=== PATIENT | female | born 1975 | race Caucasian/White ===

== ENCOUNTER 2017-08-04 22:15 | Emergency (ER) | payer SELFPAY ==
[2017-08-04] MEDS ORDERED: IPRATROPIUM/ALBUTEROL 3 ML DEYVIAL IH ONE (22:32)
[2017-08-04] MEDS ORDERED: ALBUTEROL INH PREPACK MDI TAKEHOME ONE (22:49)
[2017-08-04] MEDS ORDERED: AZITHROMYCIN 250 MG TAB PO ONE ×2 (22:50→23:12)
--- NOTE | 2017-08-04 22:53 | EDPHY ---
H & P Time Seen by Provider: 08/04/17 22:28 HPI/ROS: 42-year-old female presents complaining of cough for 4 days, primarily dry cough. She denies fevers or chills. Review of systems As per HPI General no fever no chills no weakness HEENT no eye pain no eye discharge. No eye redness, no sore throat Positive URI symptoms Respiratory positive cough, no shortness of breath Cardiac no chest pain, no peripheral edema GI no abdominal pain, no diarrhea, no constipation, no nausea, no vomiting no flank pain, no hematuria, no dysuria Musculoskeletal no myalgias, no joint pain Heme no easy bruising, no easy bleeding Endo no polyuria, no polydipsia Skin no rashes, no pruritus Neuro no syncope, no dizziness, no headaches Psych is no suicidal ideation, no homicidal ideation Past Medical/Surgical History: pneumonia Social History: quit smoking 5 years ago Smoking Status: Former smoker Physical Exam: 42-year-old female alert and oriented no acute distress, very harsh coarse cough Alert and oriented nontoxic appearance, no acute distress afebrile Atraumatic normocephalic Extraocular muscles intact, anicteric Nares mild yellowish discharge Oropharynx mild erythema no tonsillar swelling no exudate no uvular deviation, tolerating own secretions Neck supple no lymphadenopathy Lungs clear to auscultation bilaterally, scattered wheeze Heart regular rate and rhythm Abdomen normoactive bowel sounds soft nontender Extremities no cyanosis clubbing or edema Skin no rash Constitutional: Initial Vital Signs Temperature (C) 37.1 C 08/04/17 22:29 Heart Rate 101 H 08/04/17 22:29 Respiratory Rate 18 08/04/17 22:29 Blood Pressure 110/77 08/04/17 22:29 O2 Sat (%) 97 08/04/17 22:29 O2 Delivery Mode Room Air Allergies/Adverse Reactions: cephalexin monohydrate [From Keflex] Allergy (Verified 08/04/17 22:31) Rash Home Medications: Medication Instructions Recorded Azithromycin [Zithromax] 250 mg PO DAILY #6 tab 08/04/17 Benzonatate [Tessalon Pearles (RX)] 100 mg PO TID PRN #30 cap 08/04/17 methylPREDNISolone [Medrol Dose 1 each PO AD #1 ea 08/04/17 Nic] Medical Decision Making - Diagnostics Imaging Results: Imaging Impressions Chest X-Ray 08/04/17 22:31 Impression: Prominence of perihilar interstitial markings and peribronchial cuffing. Findings are nonspecific but can be seen with bronchitis, reactive airway disease, or viral process. ED Course/Re-evaluation: Patient seen and evaluated for cough x4 days with history of pneumonia in the past. Chest x-ray Negative for infiltrate Physical exam significant for harsh cough is scattered wheeze Patient given DuoNeb Given azithromycin 500 mg p.o. Prednisone 60 mg p.o. Impression Acute bronchitis Plan Discharge home Start Medrol Dosepak tomorrow Tessalon Perles Z-Nic Return as needed Differential Diagnosis: Differential diagnosis considered but not limited to: URI, bronchitis, pneumonia - Data Points Medications Given: Discontinued Medications Albuterol/Ipratropium (Duoneb) 3 ml IH EDNOW ONE Stop: 08/04/17 22:33 Last Admin: 08/04/17 22:47 Dose: 3 ml Departure - Departure Disposition: Home, Routine, Self-Care Clinical Impression: Acute bronchitis Condition: Good Instructions: Acute Bronchitis (ED) Referrals: Patient,NotPresent [Primary Care Provider] - As per Instructions Prescriptions: Azithromycin [Zithromax] 250 mg PO DAILY #6 tab Benzonatate [Tessalon Pearles (RX)] 100 mg PO TID PRN #30 cap PRN Reason: Cough, Severe methylPREDNISolone [Medrol Dose Nic] 1 each PO AD #1 ea
[2017-08-04] MEDS ORDERED: predniSONE 20 MG TAB PO ONE (22:56)
[2017-08-04 23:21] VITALS: BP 118/89
== END 2017-08-04 23:15 | disposition home or self-care (01) ==
LOC: CED 22:15
DX: J20.9 Acute bronchitis, unspecified (principal); Z87.891 Personal history of nicotine dependence
CPT/HCPCS: 71046-PO; J7512

== ENCOUNTER 2018-08-09 11:14 | Emergency (ER) | payer OTHER ==
[2018-08-09] MEDS ORDERED: NS 1,000 ML IV ONE (11:30)
[2018-08-09] MEDS ORDERED: ONDANSETRON 4 MG/2 ML VIAL IVP ONE (11:30)
--- NOTE | 2018-08-09 11:35 | EDPHY ---
H & P Time Seen by Provider: 08/09/18 11:26 HPI/ROS: CHIEF COMPLAINT: Vomiting, vaginal discharge HISTORY OF PRESENT ILLNESS: The patient is a 43-year-old female with a history of irritable bowel disease as well as endometriosis who comes to the emergency department complaining of nausea and vomiting for the last 2 days. She reports that she had to miss work yesterday and so they asked her to bring and note. She also reports that she has had vaginal discharge for about 10 years. She reports that she was diagnosed with bacterial vaginosis originally but never took medication because she could not afford it. She states that she has had continued mild discharge since that time. She also complains of frequent urination. No dysuria. No hematuria. No back pain. No fever. She denies risk of . She is sexually active with long-term single partner. She is not concerned for STD. No diarrhea. She states that she can hydrate well but if she tries to eat it makes her throw up. Severity: Moderate Modifying factors: Worsened by eating. REVIEW OF SYSTEMS: Constitutional: denies: chills, fever, recent illness, recent injury EENTM: denies: blurred vision, double vision, nose congestion Respiratory: denies: cough, shortness of breath Cardiac: denies: chest pain, irregular heart rate, lightheadedness, palpitations Gastrointestinal/Abdominal: See HPI Genitourinary: See HPI Musculoskeletal: denies: joint pain, muscle pain Skin: denies: lesions, rash, jaundice, bruising Neurological: denies: headache, numbness, paresthesia, tingling, dizziness, weakness Hematologic/Lymphatic: denies: blood clots, easy bleeding, easy bruising Immunologic/allergic: denies: HIV/AIDS, transplant 10 systems reviewed and negative except as noted EXAM: GENERAL: Well-appearing, well-nourished and in no acute distress. HEAD: Atraumatic, normocephalic. EYES: Pupils equal round and reactive to light, extraocular movements intact, sclera anicteric, conjunctiva are normal. ENT: TMs normal, nares patent, oropharynx clear without exudates. Moist mucous membranes. NECK: Normal range of motion, supple without lymphadenopathy or JVD. LUNGS: Breath sounds clear to auscultation bilaterally and equal. No wheezes rales or rhonchi. HEART: Regular rate and rhythm without murmurs, rubs or gallops. ABDOMEN: Soft, nontender, normoactive bowel sounds. No guarding, no rebound. No masses appreciated. Pelvic: No cervical motion tenderness. No unusual discharge. No erythema. No fullness. Samples taken and sent to the lab BACK: No CVA tenderness, no spinal tenderness, step-offs or deformities EXTREMITIES: Normal range of motion, no pitting or edema. No clubbing or cyanosis. NEUROLOGICAL: Cranial nerves II through XII grossly intact. Normal speech, normal gait. 5/5 strength, normal movement in all extremities, normal sensation , normal reflexes PSYCH: Normal mood, normal affect. SKIN: Warm, dry, normal turgor, no visible rashes or lesions. Source: Patient Exam Limitations: No limitations - Medical/Surgical History Hx Asthma: No Hx Chronic Respiratory Disease: No Hx Diabetes: No Hx Cardiac Disease: No Hx Renal Disease: No Hx Cirrhosis: No Hx Alcoholism: No Hx HIV/AIDS: No Hx Splenectomy or Spleen Trauma: No Other PMH: Hx PNA. - Family History Significant Family History: No pertinent family hx - Social History Smoking Status: Former smoker Alcohol Use: Sober Drug Use: None Constitutional: Initial Vital Signs Temperature (C) 36.8 C 08/09/18 12:18 Heart Rate 80 08/09/18 12:18 Respiratory Rate 18 08/09/18 12:18 Blood Pressure 128/85 H 08/09/18 12:18 O2 Sat (%) 94 08/09/18 12:18 O2 Delivery Mode Room Air Allergies/Adverse Reactions: cephalexin monohydrate [From Keflex] Allergy (Verified 08/04/17 22:31) Rash Home Medications: Medication Instructions Recorded Azithromycin [Zithromax] 250 mg PO DAILY #6 tab 08/04/17 Benzonatate [Tessalon Pearles (RX)] 100 mg PO TID PRN #30 cap 08/04/17 methylPREDNISolone [Medrol Dose 1 each PO AD #1 ea 08/04/17 Nic] Ondansetron Odt [Zofran Odt 4 mg 4 mg PO Q4 PRN #20 tab 08/09/18 (RX)] Medical Decision Making - Diagnostics Imaging: Discussed imaging studies w/ order desk caller Radiologist ED Course/Re-evaluation: 12:55 p.m. we discussed the ultrasound lab results thus far. The patient is relieved. She is currently asymptomatic. She thinks that she may have ruptured ovarian cyst because that happened to her once before when she had similar symptoms. Still pending urinalysis and vaginal swabs. 2:00 p.m. the patient is feeling completely better and is eager to go home. She needs to pick her daughter up at school. Her vaginal swabs are not yet resulted. Will call her with results. Differential Diagnosis: Partial list of the Differential diagnosis considered include but were not limited to; gastroenteritis, bacterial vaginosis, Ovarian cyst and although unlikely based on the history and physical exam, I also considered , appendicitis, diverticulitis, ischemia, obstruction. I discussed these differential diagnoses and the plan with the patient as well as the usual and expected course. The patient understands that the diagnosis is provisional and that in medicine we are not always correct and that further workup is often warranted. Usual and customary warnings were given. All of the patient's questions were answered. The patient was instructed to return to the emergency department should the symptoms at all worsen or return, otherwise to followup with the physician as we discussed. - Data Points Medications Given: Discontinued Medications Sodium Chloride (Ns) 1,000 mls @ 0 mls/hr IV ONCE ONE; Wide Open PRN Reason: Protocol Stop: 08/09/18 11:31 Last Admin: 08/09/18 11:46 Dose: 1,000 mls Ondansetron HCl (Zofran) 4 mg IVP EDNOW ONE Stop: 08/09/18 11:31 Last Admin: 08/09/18 11:45 Dose: 4 mg Point of Care Test Results: CBC CBC Collection Date 08/09/18 CBC Collection Time 11:38 WBC 8.28 RBC 4.05 HGB 12.6 HCT 38.1 PLT 237 Neut # 5.92 Neut 71.6 LYMPH # 1.45 LYMPH 17.5 MCV 94.1 Chemistry 08/09/18 11:48 POC Sodium 138 mEq/L mEq/L (135-145) POC Potassium 4.3 mEq/L mEq/L (3.3-5.0) POC Chloride 108.0 mEq/L mEq/L (97-110) POC Total CO2 25 mEq/L mEq/L (22-31) POC BUN 13 mg/dL mg/dL (7-23) POC Creatinine 0.5 mg/dL L mg/dL (0.6-1.0) POC Glucose 99 mg/dL mg/dL (70-100) POC Calcium 9.1 mg/dL mg/dL (8.5-10.4) POC Total Bilirubin 0.7 mg/dL mg/dL (0.1-1.4) POC AST 31 IU/L IU/L (14-46) POC ALT 26 IU/L IU/L (9-52) POC Alk Phosphatase 57 IU/L IU/L (38-126) POC Total Protein 6.7 g/dL g/dL (6.3-8.2) POC Albumin 3.8 g/dL g/dL (3.5-5.0) Urine Collection Date 08/09/18 Collection Time 12:15 HCG Results Negative Urine Dip Collection Date 08/09/18 Collection Time 11:58 Specific [place] (1.002-1.030) 1.020 PH (5.0-7.5) 7.0 Leukocytes (Negative) Negative Nitrites (Negative) Negative Protein (Negative) Negative Glucose (Negative) Negative Ketones (Negative) Negative Urobilnogen (0.2-1.0 EU) 0.2 Bilirubin (Negative) Negative Blood (Negative) Negative Departure - Departure Disposition: Home, Routine, Self-Care Clinical Impression: Nausea & vomiting Qualifiers: Vomiting type: unspecified Vomiting Intractability: unspecified Qualified Code( s): R11.2 - Nausea with vomiting, unspecified Condition: Fair Instructions: Acute Nausea and Vomiting (ED) Referrals: NONE *PRIMARY CARE P,. [Primary Care Provider] - As per Instructions Avis Dunne MD [Medical Doctor] - As per Instructions Stand Alone Forms: Work Excuse Prescriptions: Ondansetron Odt [Zofran Odt 4 mg (RX)] 4 mg PO Q4 PRN #20 tab PRN Reason: Nausea & Vomiting
[2018-08-09 14:16] VITALS: BP 104/87
[2018-08-12 11:32] LABS: GC AMPLIFICATION GENPROBE NEGATIVE (NEGATIVE)
== END 2018-08-09 14:16 | disposition home or self-care (01) ==
LOC: CED 11:14
DX: R11.2 Nausea with vomiting, unspecified (principal)
CPT/HCPCS: 76856-PO; 80053-ER; 81025-ER; 85025-QW-ER; 96361-ER; 96374-ER; 99285-ER; J2405